=== PATIENT | male | born 1980 | race Caucasian/White ===

== ENCOUNTER 2019-09-07 23:14 | Emergency (ER) | payer OTHER ==
[~2019-09-07] VITALS: Ht 185.4 cm; Wt 93.0 kg
--- OUTSIDE RECORDS SUMMARY | ~2019-09-07 | XMS | Encounter Summary ---
Demographics + + + | Address | [address] | | | [place] [address] | + + + | Home Phone | | + + + | Preferred Language | Unknown | + + + | Marital Status | | + + + | Taoism Affiliation | Unknown | + + + | Race | Unknown | + + + | Ethnic Group | Unknown | + + + Author + + + | Author | [facility] | | | and [place] | + + + | Organization | [facility] | | | and [place] | + + + | Address | Unknown | + + + | Phone | Unavailable | + + + Support + + +---------+ + | Name | Relationship | Address | Phone | + + +---------+ + | Clara De Paz | ECON | Unknown | | + + +---------+ + Care Team Providers + +------+ + | Care Hoseman Name | Role | Phone | + +------+ + | Lenin Jane MD | PCP | | + +------+ + Reason for Visit + + + | Reason | Comments | + + + | Hand Pain | bilateral hands, right greater than left | + + + Service/Procedure (Routine) +--------+--------+ + + + + | Status | Reason | Specialty | Diagnoses / | Referred By | Referred To | | | | | Procedures | Contact | Contact | +--------+--------+ + + + + | Closed | | Physical | Diagnoses | | [place], | | | | Medicine and | Disturbance | [place], | Mehran Presley MD | | | | Rehabilitatio | of skin | Mehran Presley MD | [address] | | | | n | sensation | [address] | [place] | | | | | Procedures | [place] | [place], [place] | | | | | [place] | [place] | [address] Phone: | | | | | &/SENS 1-2 | [id number] | [phone] | | | | | NRV CNDJ | Phone: | Fax: | | | | | PRECONF | [phone] | [phone] | | | | | ELTRODE LIMB | Fax: | | | | | | | [phone] | | | | | | EMG/NCS-BUE | | | | | | | CTS | | | +--------+--------+ + + + + Encounter Details +--------+ + + + + | Date | Type | Department | Care Team | Description | +--------+ + + + + | 12/19/ | Procedure | [facility] | Mehran Weldon | Carpal tunnel | | 2015 | visit | PHYSIATRY [address] | [address] | syndrome, bilateral | | | | [address], | [place], [place] | (Primary Dx) | | | | [place] [address] | [id number] | | | | | [phone] | | | +--------+ + + + + Social History + +-------+ +--------+------+ | Tobacco Use | Types | Packs/Day | Years | Date | | | | | Used | | + +-------+ +--------+------+ | Never Smoker | | | | | + +-------+ +--------+------+ + + +---------+ + | Alcohol Use | Drinks/Week | oz/Week | Comments | + + +---------+ + | Not Asked | | | | + + +---------+ + + + + | Sex Assigned at | Date Recorded | | | | + + + | Not on file | | + + + + + + + | Job Start Date | Occupation | Industry | + + + + | Not on file | Not on file | Not on file | + + + + + + + + | Travel History | Travel Start | Travel End | + + + + + + | No recent travel history available. | + + documented as of this encounter Last Filed Vital Signs + + + + + | Vital Sign | Reading | Time Taken | Comments | + + + + + | Blood Pressure | 124/62 | 12/19/2014 11:32 AM | | | | | PDT | | + + + + + | Pulse | 66 | 12/19/2014 11:32 AM | | | | | PDT | | + + + + + | Temperature | - | - | | + + + + + | Respiratory Rate | - | - | | + + + + + | Oxygen Saturation | - | - | | + + + + + | Inhaled Oxygen | - | - | | | Concentration | | | | + + + + + | Weight | 90.7 kg (200 lb) | 12/19/2014 11:32 AM | | | | | PDT | | + + + + + | Height | 182.9 cm (6') | 12/19/2014 11:32 AM | | | | | PDT | | + + + + + | Body Mass Index | 27.12 | 12/19/2014 11:32 AM | | | | | PDT | | + + + + + documented in this encounter Progress Notes Mehran Weldon MD - 12/22/2014 9:27 PM PDT [facility] Musculoskeletal, Sports and Spine, Physiatry [address] [address] Test Date: 12/19/2014 Patient Name: Hubert De Paz : 1980 Physician: Mehran Weldon MD MR #: [id number] Sex: Male Referring Physician: Lenin Jane MD HISTORY: The patient is a pleasant 34 year-old male who is being seen today at the request of Dr. Lenin Jane for complaints of bilateral upper extremity pain, numbness, tinglin g and weakness. The patient reports that all the fingers of the hands can be affected. He d oes get nocturnal symptoms that wake him at night. 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 He has used carpal alli joaquina splints at night but did not tolerate them well. The patient denies any history of diabe karthik, hypothyroidism, cancer or alcohol abuse. Nerve Conduction Studies Anti Sensory Summary Table Site NR Peak (ms) Norm Peak (ms) P-T Amp (V) Norm P-T Amp Site1 Site2 Delta-P (ms) Dist (cm) Bharath (m/s) Norm Bharath (m/s) Left Radial Anti Sensory (Base 1st Digit) Wrist 2.6 <3.1 28.9 Wrist Base 1st Digit 2.6 0.0 Right Radial Anti Sensory (Base 1st Digit) Wrist 2.8 <3.1 16.1 Wrist Base 1st Digit 2.8 0.0 Motor Summary Table Site NR Onset (ms) Norm Onset (ms) O-P Amp (mV) Norm O-P Amp Site1 Site2 Delta-0 (ms) Dist (cm) Bharath (m/s) Norm Bharath (m/s) Left Median Motor (Abd Poll Brev) Wrist 4.2 <4.2 8.2 >5 Elbow Wrist 3.8 21.0 55 >50 Elbow 8.0 7.8 Right Median Motor (Abd Poll Brev) Wrist *5.2 <4.2 5.2 >5 Elbow Wrist 4.0 0.0 >50 Elbow 9.2 5.8 Left Ulnar Motor (Abd Dig Minimi) Wrist 3.2 <4.2 9.8 >3 B Elbow Wrist 3.5 22.0 63 >53 B Elbow 6.7 10.2 A Elbow B Elbow 1.8 10.0 56 >53 A Elbow 8.5 10.1 Right Ulnar Motor (Abd Dig Minimi) Wrist 3.4 <4.2 9.5 >3 B Elbow Wrist 3.6 22.0 61 >53 B Elbow 7.0 9.3 A Elbow B Elbow 1.7 10.0 59 >53 A Elbow 8.7 9.1 Comparison Summary Table Site NR Peak (ms) Norm Peak (ms) P-T Amp (V) Site1 Site2 Delta-P (ms) Norm Delta (ms) Left Median/Ulnar Palm Comparison (Wrist - 8cm) Median Palm 2.2 <2.2 93.2 Median Palm Ulnar Palm 0.1 <0.3 Ulnar Palm 2.1 <2.2 19.1 Right Median/Ulnar Palm Comparison (Wrist - 8cm) Median Palm *2.7 <2.2 28.9 Median Palm Ulnar Palm *0.7 <0.3 Ulnar Palm 2.0 <2.2 21.9 EMG Side Muscle Nerve Root Ins Act Fibs Psw Amp Dur Poly Recrt Int Pat Comment Right Deltoid Axillary C5-6 Nml Nml Nml Nml Nml 0 Nml Nml Right Biceps Musculocut C5-6 Nml Nml Nml Nml Nml 0 Nml Nml Right Triceps Radial C6-8 Nml Nml Nml Nml Nml 0 Nml Nml Right PronatorTeres Median C6-7 Nml Nml Nml Nml Nml 0 Nml Nml Right 1stDorInt Ulnar C8-T1 Nml Nml Nml Nml Nml 0 Nml Nml Nerve Conduction Studies Motor Left/Right Comparison Site L Lat (ms) R Lat (ms) L-R Lat (ms) L Amp (mV) R Amp (mV) L-R Amp (%) Site1 Site2 L Ve l (m/s) R Bharath (m/s) L-R Bharath (m/s) Median Motor (Abd Poll Brev) Wrist 4.2 *5.2 *1.0 8.2 5.2 36.6 Elbow Wrist 55 Elbow 8.0 9.2 1.2 7.8 5.8 25.6 Ulnar Motor (Abd Dig Minimi) Wrist 3.2 3.4 0.2 9.8 9.5 3.1 B Elbow Wrist 63 61 2 B Elbow 6.7 7.0 0.3 10.2 9.3 8.8 A Elbow B Elbow 56 59 3 A Elbow 8.5 8.7 0.2 10.1 9.1 9.9 Anti Sensory Left/Right Comparison Site L Lat (ms) R Lat (ms) L-R Lat (ms) L Amp (V) R Amp (V) L-R Amp (%) Site1 Site2 L Bharath (m/s) R Bharath (m/s) L-R Bharath (m/s) Radial Anti Sensory (Base 1st Digit) Wrist 2.6 2.8 0.2 28.9 16.1 44.3 Wrist Base 1st Digit Comparison Left/Right Comparison Site L Lat (ms) R Lat (ms) L-R Lat (ms) L Amp (V) R Amp (V) L-R Amp (%) Median/Ulnar Palm Comparison (Wrist - 8cm) Median Palm 2.2 *2.7 0.5 93.2 28.9 69.0 Ulnar Palm 2.1 2.0 0.1 19.1 21.9 12.8 NCV FINDINGS: Evaluation of the Right median motor nerve showed prolonged distal onset latency. The Righ t median/ulnar (palm) comparison nerve showed prolonged distal peak latency (Median Palm) an d abnormal peak latency difference (Median Palm-Ulnar Palm). All remaining nerves (as indic ated in the preceding tables) were within normal limits. EMG FINDINGS: All examined muscles (as indicated in the preceding table) showed no evidence of electrical instability. 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 This i s consistent with a clinical diagnosis of carpal tunnel syndrome. The severity would be cla ssified as moderately severe on the right and mild on the left. There was no elctrodiagnostic evidence of ulnar neuropathy, cervical radiculopathy, brachia l plexopathy or peripheral neuropathy. I did discuss with the patient that given the severity of the findings and the fact that he has not tolerated the carpal tunnel splints he is likely a candidate for carpal tunnel rele ase on the right. The patient will follow-up with Dr. Jane to discuss the results of bharat boyd s study and further plan of care. Mehran Weldon MD Fellow, [place] [employer]. documented in this encounter Plan of Treatment Not on filedocumented as of this encounter Visit Diagnoses + + | Diagnosis | + + | Carpal tunnel syndrome, bilateral - Primary Carpal tunnel syndrome | + + documented in this encounter"
--- OUTSIDE RECORDS SUMMARY | ~2019-09-07 | XMS | Clinical Summary ---
Demographics + + + | [address] | [address] | | | [place] [address] | + + + | Home Phone | | + + + | Preferred Language | Unknown | + + + | Marital Status | | + + + | Mandaeism Affiliation | Unknown | + + + | Race | Unknown | + + + | Ethnic Group | Unknown | + + + Author + + + | Author | [facility] | | | and [place] | + + + | Organization | [facility] | | | and [place] | [...] Team Providers + +------+ + | Care Correctional Program Officer Name | Role | Phone | + +------+ + | Lenin Jane MD | PCP | | + +------+ + Allergies No Known Allergies Medications + + + +---------+------+------+-------+ | Medication | Sig | Dispensed | Refills | Star | End | Statu | | | | | | t | Date | s | | | | | | Date | | | + + + +---------+------+------+-------+ | naproxen | Take 250 mg by mouth | | 0 | | | Activ | | (NAPROSYN) 250 mg | as needed. | | | | | e | | tablet | | | | | | | + + + +---------+------+------+-------+ Active Problems + + + | Problem | Noted Date | + + + | Carpal tunnel syndrome, bilateral | 12/22/2014 | + + + Social History + +-------+ [...] recent travel history available. | + + Last Filed Vital Signs + + + [...] | | + + + + + Plan of Treatment + + + + + | Health Maintenance | Due Date | Last Done | Comments | + + + + + | Vaccine: | | | | | Dtap/Tdap/Td (1 - | 1 | | | | Tdap) | | | | + + + + + | Vaccine: Influenza | | | | | (#1) | 9 | | | + + + + + Results Not on filefrom Last 3 Months Insurance + +--------+ +--------+ +---------+--------+ | Payer | Benefi | Subscriber | Effect | Phone | Address | Type | | | t Plan | ID | chelsie | | | | | | / | | Dates | | | | | | Group | | | | | | + +--------+ +--------+ +---------+--------+ | [employer] | [employer] | [id number] | 09/20/19 | [phone] | | Medica | | MEDICAID HMO | HEALTH | | 15-Pre | 1 | | id | | | MDCD | | sent | | | | | | HMO [place] | | | | | | + +--------+ +--------+ +---------+--------+ + +--------+ +--------+ + + | Guarantor Name | Accoun | Relation to | Date | Phone | Billing Address | | | t Type | Patient | of | | | | | | | | | | + +--------+ +--------+ + + | Hubert De Paz W | Person | Self [birth year] | [address] | | | al/Buddy | | 1980 | [phone] | [place] [address] | | | [place] | | | 6 (Home) | | + +--------+ +--------+ + + Advance Directives + + + + + | Type | Date Recorded | Patient | Explanation | | | | Manager Equity | | + + + + + | Power of | | | | | Tour Director | | | | + + + + + | Advance | | | | | Directive | | | | + + + + +"
--- OUTSIDE RECORDS SUMMARY | ~2019-09-07 | XMS | Encounter Summary ---
Demographics + + + | Address | [address] | | | [place] [address] | + + + | Home Phone | | + + + | Preferred Language | Unknown | + + + | Marital Status | | + + + | Jew Affiliation | Unknown | + + + | Race | Unknown | + + + | Ethnic Group | Unknown | + + + Author + + + | Author | [facility] | | | and [place] | + + + | Organization | [facility] | | | and [place] | [...] Team Providers + +------+ + | Care Environmental Epidemiologist Name | Role | Phone | + [...] [place], [place] | | | | | [place] | [place], [place] | [address] Phone: | | | | | &/SENS 1-2 | [address] | [phone] | | | | | NRV CNDJ | Phone: | Fax: | | | | | PRECONF | [phone] | [phone] | | | | | [place] | Fax: | | | | | | | [phone] | | | | | | EMG/NCS-BUE [...] | syndrome, bilateral | | | | [place], | [place], [place] | (Primary Dx) | | | | [place] [address] | [id number] | | | | | [phone] | | | +--------+ + + + [...] Weldon MD - 12/22/2014 9:27 PM PDT [facility] Musculoskeletal, Sports and Spine, Physiatry [address] [address] Test Date: 12/19/2014 Patient Name: Hubert De Paz : 1980 Physician: Mehran Weldon MD MR #: [id number] Sex: Male Referring Physician: Lenin Jane MD [...] plan of care. Mehran Weldon MD Fellow, [place] [employer]. documented in this encounter Plan of Treatment Not on filedocumented as of this encounter Visit Diagnoses + + | Diagnosis | + + | Carpal tunnel syndrome, bilateral - Primary Carpal tunnel syndrome | + + documented in this encounter"
--- OUTSIDE RECORDS SUMMARY | ~2019-09-07 | XMS | Clinical Summary ---
Demographics + + + | [address] | [address] | | | [place] [address] | + + + | Home Phone | | + + + | Preferred Language | Unknown | + + + | Marital Status | | + + + | Yazdanism Affiliation | Unknown | + + + | Race | Unknown | + + + | Ethnic Group | Unknown | + + + Author + + + | Author | [facility] | | | and [place] | + + + | Organization | [facility] | | | and [place] | [...] Team Providers + +------+ + | Care Wrist Closer Name | Role | Phone | + [...] | [employer] | [employer] | [id number] | 09/20/19 | [phone] | | Medica [...] | 1980 | [phone] | [place] [address] | | | [place] | | | 6 (Home) | | + +--------+ +--------+ + + Advance Directives + + + + + | Type | Date Recorded | Patient | Explanation | | | | Hospital Chief Executive Officer | | + + + + + | Power of | | | | | Wildland Fire Fighter Specialist | | | | + + + + + | Advance | | | | | Directive | | | | + + + + +"
[~2019-09-07 23:14] MED LIST: ALEVE220 MG PO; PERCOCET 7.5-31 EACH PO
[2019-09-08] MEDS ORDERED: ISENTRESS400 MG PO (02:50)
[2019-09-08] MEDS ORDERED: TRUVADA 200 MG1 EACH PO (02:50)
== END 2019-09-08 03:05 | disposition home or self-care (01) ==
LOC: ED 23:14
DX: S61.432A Puncture wound without foreign body of left hand, initial encounter (principal); W26.8XXA Contact with other sharp object(s), not elsewhere classified, initial encounter
CPT/HCPCS: 84460; 86703; 86706; 86803; 99283

== ENCOUNTER 2021-11-25 19:08 | Emergency (ER) | payer OTHER ==
[~2021-11-25] VITALS: Ht 185.4 cm; Wt 95.2 kg
[~2021-11-25 19:08] MED LIST changes: +ISENTRESS400 MG PO; +TRUVADA 200 MG1 EACH PO
== END 2021-11-25 21:46 | disposition home or self-care (01) ==
LOC: ED 19:08
DX: S86.911A Strain of unspecified muscle(s) and tendon(s) at lower leg level, right leg, initial encounter (principal); Z88.1 Allergy status to other antibiotic agents; Z79.899 Other long term (current) drug therapy; X50.9XXA Other and unspecified overexertion or strenuous movements or postures, initial encounter; Y93.02 Activity, running
CPT/HCPCS: 99283